=== PATIENT | male | born 1970 | race Asian ===

== ENCOUNTER 2017-12-04 22:28 | Emergency (ER) | payer MEDICAID ==
[~2017-12-04] VITALS: Ht 182.9 cm; Wt 77.1 kg
[2017-12-04 22:35] VITALS: BP_SYST 153
[2017-12-04 22:54] VITALS: BP_SYST 148
== END 2017-12-04 22:54 | disposition home or self-care (01) ==
LOC: SED 22:28
DX: S91.202A Unspecified open wound of left great toe with damage to nail, initial encounter (principal); L03.032 Cellulitis of left toe; W22.8XXA Striking against or struck by other objects, initial encounter; Y93.89 Activity, other specified; Y92.89 Other specified places as the place of occurrence of the external cause; Y99.8 Other external cause status
CPT/HCPCS: 99283